=== PATIENT | male | born 1990 | race Caucasian/White ===

== ENCOUNTER 2024-04-12 13:32 | Emergency (ER) | payer SELFPAY ==
[2024-04-12 13:41] VITALS: BP 113/68; PULSE 80; TEMP 36.4; O2SAT 100
[2024-04-12 15:27] LABS: Basophils % 0.3 %; Eosinophils % 0.2 %; Hematocrit 46.1 % (37-53); Lymphocytes # 1.3 10^3/uL (0.8-4.8); Mean Corpuscular HGB Conc 33.8 g/dL (30-55); Mean Corpuscular Hemoglobin 29.4 pg (27-33); Mean Platelet Volume 9.9 fL (7.4-10.4); Monocytes # 0.4 10^3/uL (0.2-0.9); Monocytes % 3.3 %; Neutrophils # 10.22 10^3/uL (1.8-7.7); Neutrophils % 84.8 %; Nucleated Red Blood Cells % 0 %; Platelet Count 342 10^3/cmm (157-399); Red Cell Distribution Width 12.9 % (12.1-15.1); White Blood Count 12.07 10^3/uL (3.29-11.43)
[2024-04-12 15:34] LABS: Alanine Aminotransferase 29 U/L (0-41); Albumin Level 4.3 g/dL (3.5-5.2); Alkaline Phosphatase 109 U/L (40-130); Anion Gap 14.5 (5-19); Aspartate Amino Transferase 30 U/L (0-40); Blood Urea Nitrogen 8 mg/dL (6-20); Calcium 9.8 mg/dL (8.5-10.5); Carbon Dioxide 27 mmol/L (22-29); Chloride 98 mmol/L (98-107); Globulin 3.5 g/dL (1.3-4.6); Glomerular Filtration Rate 85.5 mL/min (90-130); Glucose 111 mg/dL (65-115); Lipase 33 U/L (13-60); Osmolality Calculated 281 mOsm/kg (285-295); Potassium 3.5 mmol/L (3.5-5.1); Sodium 136 mmol/L (136-145); Total Bilirubin 0.7 mg/dL (0.15-1.2); Total Protein 7.8 g/dL (6.6-8.7)
--- NOTE | 2024-04-12 15:59 | ECG_ITS ---
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 Measurements Intervals [place] Rate: 65 P: 62 [place]: 177 QRS: 84 QRSD: 99 T: 81 QT: 402 QTc: 419 Interpretive Statements SINUS RHYTHM No previous ECG available for comparison Electronically Signed On 04-13-2024 7:42:53 CDT by Andrew Mcclure M.D. [id number]
--- NOTE | 2024-04-12 15:59 | XRR_ITS ---
PROCEDURE INFORMATION: Exam: XR Chest Exam date and time: 04/12/2024 4:29 PM Age: 33 years old Clinical indication: Dyspnea and shortness of breath TECHNIQUE: Imaging protocol: Radiologic exam of the chest. Views: 1 view. COMPARISON: No relevant prior studies available. FINDINGS: Lungs: Unremarkable. No consolidation. Pleural spaces: Unremarkable. No pleural effusion. No pneumothorax. Heart/Mediastinum: Unremarkable. No cardiomegaly. Bones/joints: Unremarkable. XR/XR chest 1V portable [id number] IMPRESSION: No acute findings.
--- NOTE | 2024-04-12 16:01 | ED_ITS ---
HPI - Anxiety 2 General: Chief Complaint: Anxiety Stated Complaint: NVD Time Seen by Provider: 04/12/24 15:56 Source: patient Mode of arrival: ambulatory Limitations: no limitations History of Present Illness: 33-year-old male states he believes he h ad a panic attack today. He states he has a history of anxiety drinks multiple energy drinks and smokes marijuana he states that today started feeling very shaky felt very short of breath and had nausea and vomited once having chest pain. He states it was severe a few hours ago states that actually practically resolved currently and he feels much Associated symptoms: Reports chest pain, nausea, palpitations and vomiting; Deny chills, fever(s) or headache(s) Related Data Previous Rx's Medication Instructions Recorded bupropion HCl 75 mg tablet 150 mg (2 x 75 mg) PO QAM #60 tabs 12/16/22 fluoxetine 40 mg capsule 80 mg (2 x 40 mg) PO DAILY #60 caps 12/16/22 mirtazapine 15 mg tablet 15 mg PO .qhs 30 days #30 tabs 12/16/22 Allergies Allergy/AdvReac Type Severity Reaction Status Date / Time No Known Allergies Allergy Verified 04/12/24 13:46 Review of Systems 2 Const: Denies: fever(s), chills, body aches or change in appetite ENMT: Denies: throat pain or dental pain Card: Reports: chest pain and palpitations Resp: Reports: dyspnea GI: Reports: nausea and vomiting; Denies: abdominal pain or diarrhea Musc: Denies: neck pain or back pain Skin/Breast: Denies: rash Neuro: Denies: headache(s) Psych: Reports: anxiety [facility] ED 2 PFSH: Medical History Posttraumatic stress disorder Depression Paranoia Anxiety Physical Exam 2 Const: COMMON NORMALS: no acute distress, patient oriented x3 and healthy appearing HENMT: COMMON NORMALS: normocephalic and atraumatic HEAD & SCALP: n ormocephalic and atraumatic Eye: COMMON NORMALS: conjunctivae normal CONJUNCTIVA: Yes conjunctivae normal Neck/C-Spine: COMMON NORMALS: full ROM and supple Chest: COMMONS NORMALS: normal inspection of the chest Resp: COMMON NORMALS: normal respiratory effort, No retractions, No use of accessory muscles and clear to auscultation bilaterally AUSCULTATION: clear to auscultation bilaterally Cardio: COMMON NORMALS: regular rate, regular rhythm and No murmurs present (Cardio) RATE: regular rate RHYTHM: regular rhythm GI: COMMON NORMALS: Normal to inspection, nondistended, normoactive bowel sounds present, Soft to palpation, non-tender and no masses PALPATION: Yes Soft to palpation Extremity: COMMON NORMALS: normal to inspection and full ROM Neuro: COMMON NORMALS: patient oriented x3, moves all extremities and no focal motor deficits Psych: COMMON NORMALS: mental status grossly normal, Normal thought process present and cooperative THOUGHT PROCESS: Normal thought process present Skin: COMMON NORMALS: no rashes or lesions noted and no wounds GENERAL SKIN EXAM: no rashes or lesions noted Course 2 Vital Signs: Vital signs: Vital Signs Temperature 97.5 F L 04/12/24 13:41 Pulse Rate 80 04/12/24 13:41 Blood Pressure 113/68 04/12/24 13:41 Pulse Oximetry 100 04/12/24 13:41 Oxygen Delivery Me thod Room Air 04/12/24 13:41 MDM - Anxiety Medical Decision Making Patient presents here with likely anxiety attack symptoms are resolved EKG x-ray here are all normal is no signs of ACS or pulmonary embolism he stable for discharge she is follow-up with PCP and return if worsening he understands agrees to plan. Medical Records I reviewed the patient's medical records. Lab Data I reviewed the patient's lab results. 04/12/24 15:14 04/12/24 15:14 Laboratory Results WBC 12.07 10^3/uL (3.29-11.43) H 04/12/24 15:14 RBC 5.30 10^6/uL (3.85-5.65) 04/12/24 15:14 Hgb 15.60 g/dL (11.27-16.99) 04/12/24 15:14 Hct 46.1 % (37-53) 04/12/24 15:14 MCV 87.0 fl (82-101) 04/12/24 15:14 MCH 29.4 pg (27-33) 04/12/24 15:14 MCHC 33.8 g/dL (30-55) 04/12/24 15:14 RDW 12.9 % (12.1-15.1) 04/12/24 15:14 Plt Count 342 10^3/cmm (157-399) 04/12/24 15:14 MPV 9.9 fL (7.4-10.4) 04/12/24 15:14 Neut % (Auto) 84.8 % 04/12/24 15:14 Lymph % (Auto) 11.0 % 04/12/24 15:14 [place] % (Auto) 3.3 % 04/12/24 15:14 Eos % (Auto) 0.2 % 04/12/24 15:14 Baso % (Auto) 0.3 % 04/12/24 15:14 Neut # (Auto) 10.22 10^3/uL (1.8-7.7) H 04/12/24 15:14 Lymph # (Auto) 1.3 10^3/uL (0.8-4.8) 04/12/24 15:14 [place] # (Auto) 0.4 10^3/uL (0.2-0.9) 04/12/24 15:14 Eos # (Auto) 0.0 10^3/uL (0.0-0.8) 04/12/24 15:14 Baso # (Auto) 0.0 10^3/uL (0.0-0.1) 04/12/24 15:14 Nucleated RBC % (auto) 0 % 04/12/24 15:14 Nucleated RBCs # 0.0 /100WBC 04/12/24 15:14 Sodium 136 mmol/L (136-145) 04/12/24 15:14 Potassium 3.5 mmol/L (3.5-5.1) 04/12/24 15:14 Chloride 98 mmol/L (98-107) 04/12/24 15:14 Carbon Dioxide 27 mmol/L (22-29) 04/12/24 15:14 Anion Gap 14.5 (5-19) 04/12/24 15:14 BUN 8 mg/dL (6-20) 04/12/24 15:14 Creatinine 1.0 mg/dL (0.7-1.2) 04/12/24 15:14 GFR Calculation 85.5 mL/min (90-130) L 04/12/24 15:14 Glucose 111 mg/dL (65-115) 04/12/24 15:14 Calculated Osmolality 281 mOsm/kg (285-295) L 04/12/24 15:14 Calcium 9.8 mg/dL (8.5-10.5) 04/12/24 15:14 Total Bilirubin 0.7 mg/dL (0.15-1.2) 04/12/24 15:14 AST 30 U/L (0-40) 04/12/24 15:14 ALT 29 U/L (0-41) 04/12/24 15:14 Alkaline Phosphatase 109 U/L (40-130) 04/12/24 15:14 Total Protein 7.8 g/dL (6.6-8.7) 04/12/24 15:14 Albumin 4.3 g/dL (3.5-5.2) 04/12/24 15:14 Globulin 3.5 g/dL (1.3-4.6) 04/12/24 15:14 Lipase 33 U/L (13-60) 04/12/24 15:14 Urine Color Yellow (Yellow) 04/12/24 16:45 Urine Appearance Clear (CLEAR) 04/12/24 16:45 Urine pH 6.0 (5-7) 04/12/24 16:45 Ur Specific [place] 1.002 (1.005-1.030) L 04/12/24 16:45 Urine Protein Negative (Negative) 04/12/24 16:45 Urine Glucose (UA) Negative (Normal) 04/12/24 16:45 Urine Ketones 1+ (Negative) H 04/12/24 16:45 Urine Blood Negative (Negative) 04/12/24 16:45 Urine Nitrate Negative (Negative) 04/12/24 16:45 Urine Bilirubin Negative (Negative) 04/12/24 16:45 Urine Urobilinogen 0.2 mg/dL (Negative) 04/12/24 16:45 Ur Leukocyte Esterase Negative (Negative) 04/12/24 16:45 Urine RBC 0-2 /hpf (0-2) 04/12/24 16:45 Urine WBC 0-5 /hpf (0-5) 04/12/24 16:45 Ur Squamous Epith Cells 0-5 /hpf (0-5) 04/12/24 16:45 Amorphous Sediment Not Reportable 04/12/24 16:45 Urine Bacteria None seen /hpf (NONE) 04/12/24 16:45 Hyaline Casts 0-4 /lpf H 04/12/24 16:45 All radiology interpretation(s) finalized by discharge Discharge Plan Discharge Patient Disposition: Home Clinical Impression: Acute anxiety Condition: Stable Prescriptions: No Action fluoxetine 40 mg capsule 80 mg PO DAILY Qty: 60 3RF mirtazapine 15 mg tablet 15 mg PO .qhs 30 Days Qty: 30 3RF bupropion HCl 75 mg tablet 150 mg PO QAM Qty: 60 3RF Discharge Orders: Discharge ED (Routine); Ordered 04/12/24 Ordered By: Adelaida Orozco Referrals: Alfred Carvajal DO [Primary Care Provider] - 4-7 days Discharge Diet: Advance as tolerated Discharge Activity: Resume usual activity Patient Instructions: Anxiety (ED) Coding Level of Care Code ED Implementation Project Manager for Jareth Saul
[2024-04-12] MEDS: LORazepam 2 mg/mL INJ 1 mL 1 MG IM (16:13)
[2024-04-12 16:16] VITALS: BP 100/70; PULSE 78; RESP 16; O2SAT 98
[2024-04-12 17:00] LABS: Charge for UA Resulting for Rev
[2024-04-12 17:02] LABS: Bilirubin Urine Negative (Negative); Blood Urine Negative (Negative); Glucose Urine UA Negative (Normal); Ketones Urine 1+ (Negative); Leukocyte Esterase Urine Negative (Negative); Nitrate Urine Negative (Negative); Protein Urine Negative (Negative); Specific Gravity, Urine 1.002 (1.005-1.030); Urine Appearance Clear (CLEAR); Urine Color Yellow (Yellow); Urobilinogen Urine 0.2 mg/dL (Negative)
[2024-04-12 17:05] LABS: Bacteria Urine None Seen /hpf; Hyaline Casts Urine 0-4 /lpf; RBC Urine 0-2 /hpf (0-2); Squamous Epithelial Cell Urine 0-5 /hpf (0-5); WBC Urine 0-5 /hpf (0-5)
[2024-04-12 17:21] VITALS: BP 108/66; PULSE 74; RESP 16; O2SAT 99
== END 2024-04-12 17:23 | disposition home or self-care (01) ==
PROVIDERS: Emergency Provider Emergency Medicine; PCP Family Medicine
DX: F41.9 Anxiety disorder, unspecified (principal)
CPT/HCPCS: 36415; 71045; 80053; 81003; 81015; 83690; 85025; 93005; 96372; 99284; J2060

== ENCOUNTER 2025-02-22 12:15 | Emergency (ER) | payer MEDICARE, SELFPAY ==
--- NOTE | 2025-02-22 12:18 | XRR_ITS ---
PROCEDURE INFORMATION: Exam: XR Chest Exam date and time: 02/22/2025 12:26 PM Age: 34 years old Clinical indication: Pain; Angina pectoris; Additional info: Cp TECHNIQUE: Imaging protocol: Radiologic exam of the chest. Views: 1 view. COMPARISON: CR XR chest 1V portable [id number] 04/12/2024 4:29 PM FINDINGS: Lungs: Unremarkable. No consolidation. Pleural spaces: Unremarkable. No pleural effusion. No pneumothorax. Heart/Mediastinum: Unremarkable. No cardiomegaly. Bones/joints: Unremarkable. XR/XR chest 1V portable [id number] IMPRESSION: No acute findings.
--- NOTE | 2025-02-22 12:24 | ECG_ITS ---
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 Measurements Intervals [place] Rate: 72 P: 69 OR: 183 QRS: 76 QRSD: 93 T: 76 QT: 365 QTc: 400 Interpretive Statements SINUS RHYTHM Compared to ECG 04/12/2024 13:39:33 No significant changes Electronically Signed On 02-24-2025 09:05:05 CDT by Andrew Mcclure M.D. [id number]
[2025-02-22 12:25] VITALS: BP 97/62; PULSE 70; RESP 16; TEMP 36.9; O2SAT 98
--- OUTSIDE RECORDS SUMMARY | 2025-02-22 12:25 | XMS_ITS | Clinical Summary ---
Author Organization [facility] Address [address] [place] [address] Phone Care Team Providers Care Physical Security Engineer Name Role Phone Alfred Carvajal Primary Care Provider [phone] Allergies Active Allergy Reactions Criticality Noted Date Comments Penicillins Other (See Comments) 12/08/2020 Both parents were allergice Medications magnesium carb,citrate,oxi de (Magnesium Complex) 300 mg magnesium Tablet Take 300 mg by mouth 2 times daily. 60 Tablet 5 01/11/2021 Active buPROPion HCL (Wellbutrin SR) 150 mg Sustained Release 12 hour tablet Take 1 Tablet (150 mg) by mouth 2 times daily. 60 Tablet 2 01/11/2021 Active lamoTRIgine (LaMICtal) 100 mg tablet Take 1 Tablet (100 mg) by mouth daily. 30 Tablet 5 01/11/2021 Active Active Problems Problem Noted Date Diagnosed Date Marijuana use 12/13/2020 Bipolar affective disorder, currently depressed, moderate 12/13/2020 Social History Tobacco Use Types Packs/Day Years Used Date Smoking Tobacco: Every Day Cigarettes Alcohol Use Standard Drinks/Week Comments Never 0 (1 standard drink = 0.6 oz pur e alcohol) Sex and Gender Information Value Date Recorded Sex Assigned at Not on file Legal Sex Male 8:14 AM CDT Gender Identity Not on file Sexual Orientation Not on file Last Filed Vital Signs Vital Sign Reading Time Taken Comments Blood Pressure 110/70 01/11/2021 3:35 PM CDT Pulse 72 01/11/2021 3:35 PM CDT Temperature 36.4 C (97.6 F) 01/11/2021 3:35 PM CDT Respiratory Rate 16 01/11/2021 3:35 PM CDT Oxygen Saturation 97% 01/11/2021 3:35 PM CDT Inhaled Oxygen Concentration - - Weight 85.2 kg (187 lb 12.8 oz) 01/11/2021 3:35 PM CDT Height 175.3 cm (5' 9 ) 01/11/2021 3:35 PM CDT Body Mass Index 27.73 01/11/2021 3:35 PM CDT Plan of Treatment Health Maintenance Due Date Last Done Comments HPV VACCINES (1 - Male 3-dose series) 2004 DTAP/TDAP/TD VACCINES (1 - Tdap) 2008 HEPATITIS B VACCINES (1 of 3 - 19+ 3-dose series) 10/03 INFLUENZA VACCINE (#1) 2025 Preventative Visit-Managed Medicaid 04/28/202504/27 Insurance [facility] Care Teams Physical Security Engineer Relationship Specialty Start Date End Date Alfred Carvajal DO [address] [place] [address] PCP - General Family Practice 12/08/20
--- NOTE | 2025-02-22 13:10 | W.ED.CHESTPA ---
HPI - Chest Pain General: Chief Complaint: Chest Pain Stated Complaint: Chest Pains,Kidney's painful, trouble urinating Time Seen by Provider: 02/22/25 12:38 History of Present Illness: 34-year-old male presents emergency room complaining of chest pain for 2 weeks. He was seen last week at [facility] evaluated and discharged home with Protonix. He is also having some flank pain and some right-sided chest pain. No fever. Complaining of left flank pain radiating down to the groin. Denies any dysuria urgency or frequency or hematuria. No vomiting no diarrhea. No bulge in the groin. Associated symptoms: Deny abdominal pain, dyspnea or fever(s) Related Data Home Medications ?Medication ?Instructions ?Recorded ?Confirmed benzonatate 200 mg capsule 200 mg PO BID PRN Cough 02/22/25 02/22/25 ondansetron 4 mg disintegrating 4 mg PO Q8H PRN Nausea And Vomiting 02/22/25 02/22/25 tablet pantoprazole 40 mg tablet,delayed 40 mg PO DAILY 02/22/25 02/22/25 release trazodone 50 mg tablet 50 mg PO BEDTIME PRN Sleep 02/22/25 02/22/25 Previous Rx's ?Medication ?Instructions ?Recorded diclofenac sodium 75 mg 75 mg PO Q12H PRN pain #20 tabs 02/22/25 tablet,delayed release tizanidine 4 mg tablet 4 mg PO Q6H PRN muscle spasticity 02/22/25 #20 tabs Allergies Allergy/AdvReac Type Severity Reaction Status Date / Time No Known Allergies Allergy Verified 04/12/24 13:46 Review of Systems Const: Denies: fever(s) or chills Card: Denies: chest pain Resp: Denies: dyspnea GI: Denies: abdominal pain : Reports: flank pain; Denies: dysuria, urinary frequency or urinary urgency Musc: Denies: neck pain or back pain Skin/Breast: Denies: rash PFSH ED PFSH: Medical History Posttraumatic stress disorder Depression Paranoia Anxiety Physical Exam Const: GENERAL APPEARANCE: cooperative ORIENTATION/CONSCIOUSNESS: Yes awake, Yes oriented to person, Yes oriented to place and Yes oriented to time HENMT: COMMON NORMALS: normocephalic, atraumatic and hearing grossly normal bilaterally HEAD & SCALP: normocephalic and atraumatic Resp: COMMON NORMALS: normal respiratory effort, No retractions, No use of accessory muscles and clear to auscultation bilaterally AUSCULTATION: clear to auscultation bilaterally Cardio: COMMON NORMALS: regular rate, regular rhythm and No murmurs present (Cardio) RATE: regular rate RHYTHM: regular rhythm GI: COMMON NORMALS: Soft to palpation and No hepatosplenomegaly present AUSCULTATION: Yes normoactive bowel sounds PALPATION: Yes Soft to palpation, No Tenderness to palpation present (GI), No Guarding due to palpation present (GI) and Yes No hepatosplenomegaly present Back/Pelvis: OTHER: No CVA tenderness Extremity: COMMON NORMALS: normal to inspection, capillary refill normal, no clubbing, cyanosis or edema, no calf tenderness and no pedal edema Neuro: SENSORIUM/ORIENTATION: Yes oriented to person, Yes oriented to place and Yes oriented to time Skin: COMMON NORMALS: no rashes or lesions noted GENERAL SKIN EXAM: no rashes or lesions noted Course Vital Signs: Vital signs: Vital Signs Temperature 98.5 F 02/22/25 12:25 Pulse Rate 61 02/22/25 15:00 Respiratory Rate 16 02/22/25 12:25 Blood Pressure 107/62 02/22/25 15:00 Pulse Oximetry 99 02/22/25 15:00 Oxygen Delivery Me thod Room Air 02/22/25 15:00 MDM - Chest Pain Medical Decision Making Labs unremarkable. EKG and troponins negative. Will discharge patient home continue on the pantoprazole. His symptoms are more suggestive of musculoskeletal back pain. Will discharge patient with diclofenac tizanidine and have him follow-up with primary care. Reviewed findings in detail with him and his . They are somewhat frustrated because the headaches hopes to find something more specific and immediately treatable. Medical Records I reviewed the patient's medical records. Lab Data I reviewed the patient's lab results. 02/22/25 13:09 02/22/25 13:09 Radiology Impressions Chest X-Ray 02/22/25 12:18 IMPRESSION: No acute findings. Laboratory Results WBC 7.38 10^3/uL (3.29-11.43) 02/22/25 13:09 RBC 5.02 10^6/uL (3.85-5.65) 02/22/25 13:09 Hgb 15.10 g/dL (11.27-16.99) 02/22/25 13:09 Hct 44.1 % (37-53) 02/22/25 13:09 MCV 87.8 fl (82-101) 02/22/25 13:09 MCH 30.1 pg (27-33) 02/22/25 13:09 MCHC 34.2 g/dL (30-55) 02/22/25 13:09 RDW 13.0 % (12.1-15.1) 02/22/25 13:09 Plt Count 263 10^3/cmm (157-399) 02/22/25 13:09 MPV 9.7 fL (7.4-10.4) 02/22/25 13:09 Neut % (Auto) 62.5 % 02/22/25 13:09 Lymph % (Auto) 29.3 % 02/22/25 13:09 [place] % (Auto) 6.5 % 02/22/25 13:09 Eos % (Auto) 0.9 % 02/22/25 13:09 Baso % (Auto) 0.4 % 02/22/25 13:09 Neut # (Auto) 4.61 10^3/uL (1.8-7.7) 02/22/25 13:09 Lymph # (Auto) 2.2 10^3/uL (0.8-4.8) 02/22/25 13:09 [place] # (Auto) 0.5 10^3/uL (0.2-0.9) 02/22/25 13:09 Eos # (Auto) 0.1 10^3/uL (0.0-0.8) 02/22/25 13:09 Baso # (Auto) 0.0 10^3/uL (0.0-0.1) 02/22/25 13:09 Nucleated RBC % (auto) 0 % 02/22/25 13:09 Nucleated RBCs # 0.0 /100WBC 02/22/25 13:09 Sodium 140 mmol/L (136-145) 02/22/25 13:09 Potassium 4.1 mmol/L (3.5-5.1) 02/22/25 13:09 Chloride 102 mmol/L (98-107) 02/22/25 13:09 Carbon Dioxide 26 mmol/L (22-29) 02/22/25 13:09 Anion Gap 16.1 (5-19) 02/22/25 13:09 BUN 11 mg/dL (6-20) 02/22/25 13:09 Creatinine 1.0 mg/dL (0.7-1.2) 02/22/25 13:09 GFR Calculation 85.0 mL/min (90-130) L 02/22/25 13:09 Glucose 87 mg/dL (65-115) 02/22/25 13:09 Calculated Osmolality 289 mOsm/kg (285-295) 02/22/25 13:09 Calcium 9.4 mg/dL (8.5-10.5) 02/22/25 13:09 Total Bilirubin 0.5 mg/dL (0.15-1.2) 02/22/25 13:09 AST 27 U/L (0-40) 02/22/25 13:09 ALT 33 U/L (0-41) 02/22/25 13:09 Alkaline Phosphatase 70 U/L (40-130) 02/22/25 13:09 Troponin T Baseline < 6 ng/L (0-15) 02/22/25 13:09 Troponin T 120 Minute < 6.0 ng/L (0-15) 02/22/25 14:55 Delta Troponin T 0 ABS# (0-10) 02/22/25 14:55 Total Protein 7.1 g/dL (6.6-8.7) 02/22/25 13:09 Albumin 4.7 g/dL (3.5-5.2) 02/22/25 13:09 Globulin 2.4 g/dL (1.3-4.6) 02/22/25 13:09 Lipase 37 U/L (13-60) 02/22/25 13:09 Urine Color Yellow (Yellow) 02/22/25 13:16 Urine Appearance Clear (CLEAR) 02/22/25 13:16 Urine pH 6.5 (5-7) 02/22/25 13:16 Ur Specific [place] 1.004 (1.005-1.030) L 02/22/25 13:16 Urine Protein Negative (Negative) 02/22/25 13:16 Urine Glucose (UA) Negative (Normal) 02/22/25 13:16 Urine Ketones Negative (Negative) 02/22/25 13:16 Urine Blood Negative (Negative) 02/22/25 13:16 Urine Nitrate Negative (Negative) 02/22/25 13:16 Urine Bilirubin Negative (Negative) 02/22/25 13:16 Urine Urobilinogen 0.2 mg/dL (Negative) 02/22/25 13:16 Ur Leukocyte Esterase Negative (Negative) 02/22/25 13:16 Urine RBC 0-2 /hpf (0-2) 02/22/25 13:16 Urine WBC 0-5 /hpf (0-5) 02/22/25 13:16 Ur Squamous Epith Cells 0-5 /hpf (0-5) 02/22/25 13:16 Amorphous Sediment Not Reportable 02/22/25 13:16 Urine Bacteria None seen /hpf (NONE) 02/22/25 13:16 Hyaline Casts 0-4 /lpf H 02/22/25 13:16 All radiology interpretation(s) finalized by discharge EKG Data EKG 1: Interpretation: EKG 02/22/2025 1224 sinus rhythm no acute ST changes noted no significant change from previous EKG 04/12/2024. Rate of 72 TX interval 183 QTc 400. EKG 2: Interpretation: EKG 02/22/2025 1414. Sinus bradycardia rate of 55 parable 174 QTc [address] changes noted compared to previous EKG same day no significant changes Discharge Plan Discharge Patient Disposition: Home Clinical Impression: Lumbar back pain Condition: Stable Prescriptions: New tizanidine 4 mg tablet 4 mg PO Q6H PRN (Reason: muscle spasticity) Qty: 20 0RF Rx Instructions: do not exceed 3 doses per 24 hrs diclofenac sodium 75 mg tablet,delayed release (DR/EC) 75 mg PO Q12H PRN (Reason: pain) Qty: 20 0RF Discontinued ibuprofen 200 mg Tablet 400 mg PO Q6H PRN (Reason: Pain) No Action trazodone 50 mg tablet 50 mg PO BEDTIME PRN (Reason: Sleep) pantoprazole 40 mg tablet,delayed release (DR/EC) 40 mg PO DAILY ondansetron 4 mg tablet,disintegrating 4 mg PO Q8H PRN (Reason: Nausea And Vomiting) benzonatate [Tessalon] 200 mg Capsule 200 mg PO BID PRN (Reason: Cough) Discharge Orders: Discharge ED (Routine); Ordered 02/22/25 Ordered By: Ramses Portillo Referrals: Alfred Carvajal DO [Primary Care Provider] Discharge Diet: Usual diet Discharge Activity: Resume usual activity Patient Instructions: Opioid Safety, Pain Management, Patient Portal & Hai Instructions Activity Restrictions/Additional Instructions: Thank you for choosing [facility] for your healthcare needs today. It is very important that you follow up as instructed or that you return to the Emergency Department should you have concerns or if your condition changes or worsens in any way. You are seen in the emergency room with complaint of chest pain difficulty urinating and back pain. Your white count was normal kidney function liver functions were also normal urine did not show any signs of infection or blood suggestive of a kidney stone. Based on your history and your presenting symptoms suspect that a lot of your back pain is musculoskeletal in nature. We gave you tizanidine and diclofenac to use as needed continue to use the pantoprazole that you are previously prescribed. If you have persistent symptoms you can follow-up with your primary care doctor for advanced imaging if it is felt to be indicated. Print Language: Romansh Coding Level of Care Code ED City Route Driver for Jareth Saul
[2025-02-22 13:17] LABS: Hematocrit 44.1 % (37-53); Hemoglobin 15.10 g/dL (11.27-16.99); Mean Corpuscular HGB Conc 34.2 g/dL (30-55); Mean Corpuscular Hemoglobin 30.1 pg (27-33); Mean Corpuscular Volume 87.8 fl (82-101); Nucleated Red Blood Cells % 0 %; Platelet Count 263 10^3/cmm (157-399); Red Blood Count 5.02 10^6/uL (3.85-5.65); White Blood Count 7.38 10^3/uL (3.29-11.43)
[2025-02-22 13:27] LABS: Glucose Urine UA Negative (Normal); Nitrate Urine Negative (Negative); Specific Gravity, Urine 1.004 (1.005-1.030)
[2025-02-22 13:32] LABS: Add Urine Microscopic? YES
[2025-02-22 13:34] LABS: Alanine Aminotransferase 33 U/L (0-41); Albumin Level 4.7 g/dL (3.5-5.2); Alkaline Phosphatase 70 U/L (40-130); Anion Gap 16.1 (5-19); Aspartate Amino Transferase 27 U/L (0-40); Blood Urea Nitrogen 11 mg/dL (6-20); Calcium 9.4 mg/dL (8.5-10.5); Carbon Dioxide 26 mmol/L (22-29); Chloride 102 mmol/L (98-107); Creatinine Clr Calc Pharmacy 104.1979; Globulin 2.4 g/dL (1.3-4.6); Glucose 87 mg/dL (65-115); Lipase 37 U/L (13-60); Osmolality Calculated 289 mOsm/kg (285-295); Potassium 4.1 mmol/L (3.5-5.1); Sodium 140 mmol/L (136-145); Total Protein 7.1 g/dL (6.6-8.7)
[2025-02-22 13:35] LABS: Troponin(5th) Baseline < 6 ng/L (0-15)
--- NOTE | 2025-02-22 13:50 | PC.PHAR ---
Pt states he takes Tessalon pearls but does not know the strength. Phoned [facility]-they are closed for lunch until 2pm. Will follow up and add to med list when they open again.
[2025-02-22 14:00] VITALS: BP 100/63; PULSE 56; O2SAT 100
--- NOTE | 2025-02-22 14:14 | ECG_ITS ---
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
[2025-02-22 15:00] VITALS: BP 107/62; PULSE 61; O2SAT 99
[2025-02-22 15:23] LABS: Troponin 5 2HR < 6.0 ng/L (0-15); Troponin 5 2HR Delta 0 ABS# (0-10)
== END 2025-02-22 16:00 | disposition home or self-care (01) ==
PROVIDERS: Emergency Medicine; Emergency Provider Family Medicine; PCP Family Medicine
DX: M54.50 Low back pain, unspecified (principal)
CPT/HCPCS: 36415; 71045; 80053; 81001; 83690; 84484; 85025; 93005; 99285